=== PATIENT | female | born 1960 | race Caucasian/White ===

== ENCOUNTER 2021-07-05 19:41 | Inpatient (IN) | payer OTHER ==
[~2021-07-05] VITALS: Ht 165.1 cm; Wt 125.2 kg
[2021-07-05 20:32] LABS: HEMOGLOBIN 13.5 gm/dl (12.3-15.3); RED BLOOD COUNT 4.41 M/UL (4.00-5.10); WHITE BLOOD COUNT 6.9 K/UL (4.5-11.0)
[2021-07-05 20:40] LABS: BUN/CREATININE RATIO 9 (0-10)
[2021-07-06] MEDS ORDERED: ZYRTEC10 MG PO (04:59)
[2021-07-06] MEDS ORDERED: ATORVASTATIN CA80 MG PO (04:59)
[2021-07-06] MEDS ORDERED: GLUCOTROL XL5 MG PO (05:00)
[2021-07-06] MEDS ORDERED: COZAAR100 MG PO (05:01)
[2021-07-06] MEDS ORDERED: NEXIUM40 MG PO (05:01)
[2021-07-06] MEDS ORDERED: LEVOTHYROXINE75 MC1 PO (05:01)
[2021-07-06] MEDS ORDERED: SINGULAIR10 MG PO (05:02)
[2021-07-06] MEDS ORDERED: VOLTAREN EC 5050 MG PO (05:02)
[2021-07-06] MEDS ORDERED: JARDIANCE25 MG PO (05:02)
[2021-07-06] MEDS ORDERED: VITAMIN D 40400 UNIT PO (05:03)
[2021-07-06] MEDS ORDERED: ASPIRIN81 MG PO (05:03)
[2021-07-06] MEDS ORDERED: FLONASE 0.05% N16 GM (05:04)
[2021-07-06] MEDS ORDERED: TORSEMIDE10 MG PO (05:05)
[2021-07-07 04:34] LABS: HEMOGLOBIN 12.5 gm/dl (12.3-15.3); RED BLOOD COUNT 4.17 M/UL (4.00-5.10); WHITE BLOOD COUNT 10.4 K/UL (4.5-11.0)
[2021-07-07 04:42] LABS: BUN/CREATININE RATIO 28 (0-10)
[2021-07-08 06:51] LABS: HEMOGLOBIN 11.9 gm/dl (12.3-15.3); RED BLOOD COUNT 3.92 M/UL (4.00-5.10); WHITE BLOOD COUNT 12.2 K/UL (4.5-11.0)
[2021-07-08 07:39] LABS: BUN/CREATININE RATIO 32 (0-10)
[2021-07-09 08:02] LABS: HEMOGLOBIN 11.8 gm/dl (12.3-15.3); RED BLOOD COUNT 3.94 M/UL (4.00-5.10); WHITE BLOOD COUNT 11.3 K/UL (4.5-11.0)
[2021-07-09 08:18] LABS: BUN/CREATININE RATIO 32 (0-10)
[2021-07-10 07:16] LABS: HEMOGLOBIN 12.1 gm/dl (12.3-15.3); RED BLOOD COUNT 4.04 M/UL (4.00-5.10); WHITE BLOOD COUNT 12.2 K/UL (4.5-11.0)
[2021-07-10 07:49] LABS: BUN/CREATININE RATIO 26 (0-10)
[2021-07-11 10:27] LABS: HEMOGLOBIN 12.7 gm/dl (12.3-15.3); RED BLOOD COUNT 4.21 M/UL (4.00-5.10)
[2021-07-11 10:30] LABS: WHITE BLOOD COUNT 15.5 K/UL (4.5-11.0)
[2021-07-11 10:53] LABS: BUN/CREATININE RATIO 29 (0-10)
[2021-07-11] MEDS ORDERED: ZITHROMAX500 MG PO (18:03)
[2021-07-11] MEDS ORDERED: OMNICEF 300 MG300 MG PO (18:03)
[2021-07-11] MEDS ORDERED: ZINC SULFATE50 MG PO (18:03)
[2021-07-11] MEDS ORDERED: DEXAMETHASONE6 MG PO (18:03)
[2021-07-11] MEDS ORDERED: PROAIR HFA8.5 GM INH (18:06)
[2021-07-11] MEDS ORDERED: IPRAT-ALBUT 0.5-3 ML NEB (18:19)
== END 2021-07-11 19:07 | disposition home or self-care (01) | DRG 177 ==
LOC: ER1 19:41 → MED SURG 4 23:01 → CDU 23:01 → MED SURG 4 07-06 04:41
PROVIDERS: Internal Medicine; Physician Assistant Medical; ADMIT Internal Medicine
PROC: 8E0ZXY6 Isolation (ICD-10-PCS; principal; 2021-07-06)
PROC: XW033E5 Introduction of Remdesivir Anti-infective into Peripheral Vein, Percutaneous Approach, New Technology Group 5 (ICD-10-PCS; 2021-07-06)
PROC: 3E0333Z Introduction of Anti-inflammatory into Peripheral Vein, Percutaneous Approach (ICD-10-PCS; 2021-07-06)
DX: U07.1 COVID-19 (principal); J12.82 Pneumonia due to coronavirus disease 2019; J96.01 Acute respiratory failure with hypoxia; J15.9 Unspecified bacterial pneumonia; Z68.42 Body mass index [BMI] 45.0-49.9, adult; E66.01 Morbid (severe) obesity due to excess calories; J30.9 Allergic rhinitis, unspecified; I10 Essential (primary) hypertension; E03.9 Hypothyroidism, unspecified; E55.9 Vitamin D deficiency, unspecified; E78.5 Hyperlipidemia, unspecified; E11.9 Type 2 diabetes mellitus without complications; Z79.52 Long term (current) use of systemic steroids; Z79.899 Other long term (current) drug therapy; Z79.82 Long term (current) use of aspirin; Z79.4 Long term (current) use of insulin
CPT/HCPCS: 36415; 36600; 71045; 80053; 82728; 82803; 82962; 83615; 84439; 84443; 85025; 85027; 85652; 87040; 87070; 87205; 94640; 94760; 96374; 99285; J0456; J0696; J1100; J1650; J7030; U0002

== ENCOUNTER → 2021-08-01 | Outpatient (CLI) | payer OTHER ==
[~2021-08-01] MED LIST: ASPIRIN81 MG PO; ATORVASTATIN CA80 MG PO; COZAAR100 MG PO; DEXAMETHASONE6 MG PO; FLONASE 0.05% N16 GM; GLUCOTROL XL5 MG PO; IPRAT-ALBUT 0.5-3 ML NEB; JARDIANCE25 MG PO; LEVOTHYROXINE75 MC1 PO; NEXIUM40 MG PO; OMNICEF 300 MG300 MG PO; PROAIR HFA8.5 GM INH; SINGULAIR10 MG PO; TORSEMIDE10 MG PO; VITAMIN D 40400 UNIT PO; VOLTAREN EC 5050 MG PO; ZINC SULFATE50 MG PO; ZITHROMAX500 MG PO; ZYRTEC10 MG PO
== END ==
LOC: RAD 14:35
DX: U07.1 COVID-19 (principal); J12.82 Pneumonia due to coronavirus disease 2019; R91.8 Other nonspecific abnormal finding of lung field
CPT/HCPCS: 71046

== ENCOUNTER → 2021-08-08 | Outpatient (CLI) | payer OTHER | LOC: HEART 5 14:57 | DX: R06.02 Shortness of breath (principal) | CPT/HCPCS: 94060; 94729 ==

== ENCOUNTER → 2021-08-27 | Outpatient (CLI) | payer OTHER | LOC: HEART 5 13:00 | DX: R06.02 Shortness of breath (principal); I51.7 Cardiomegaly | CPT/HCPCS: 93306 ==

== ENCOUNTER → 2021-09-19 | Outpatient (CLI) | payer OTHER | LOC: SLEEP 15:04 | DX: R06.02 Shortness of breath (principal) | CPT/HCPCS: 95811 ==